=== PATIENT | female | born 1995 | race Caucasian/White ===

== ENCOUNTER 2017-02-15 01:44 | Emergency (ER) | payer OTHER ==
[~2017-02-15] VITALS: Ht 165.1 cm; Wt 74.8 kg
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
[2017-02-15 02:05] VITALS: BP 119/58
== END 2017-02-15 03:41 ==
LOC: ERH 01:44
DX: F10.121 Alcohol abuse with intoxication delirium (principal)
CPT/HCPCS: 80101; 80307; J3101

== ENCOUNTER 2017-02-15 12:13 | Emergency (ER) | payer OTHER ==
[~2017-02-15] VITALS: Ht 162.6 cm; Wt 81.6 kg
[2017-02-15 13:05] VITALS: BP 150/104
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
== END 2017-02-15 13:50 ==
LOC: ERH 12:13
DX: F10.129 Alcohol abuse with intoxication, unspecified (principal)